=== PATIENT | female | born 1965 | race Caucasian/White ===

== ENCOUNTER → 2021-07-24 10:17 | Outpatient (BNVA) | payer SELFPAY | PROVIDERS: Family Provider Electrodiagnostic Medicine; PCP Electrodiagnostic Medicine; Visit Provider Nurse Practitioner Family | DX: Z20.828 Contact with and (suspected) exposure to other viral communicable diseases (principal) | CPT/HCPCS: 87635 ==

== ENCOUNTER 2021-08-18 08:29 | Outpatient (CLI) | payer OTHER, SELFPAY ==
--- NOTE | 2021-08-18 08:45 | XR_ITS ---
WS: [id number] Exam: XR cervical spine fl/ex [id number] Date/Time of Exam: 08/18/2021 8:52 AM Reason For Exam: M06.9 - Rheumatoid arthritis, unspecified No fracture or dislocation. No flexion or extension instability. Normal paraspinal soft tissues. XR/XR cervical spine fl/ex [id number] IMPRESSION: 1. No fracture or instability identified. Negative.
--- NOTE | 2021-08-18 08:45 | XR_ITS ---
WS: [id number] Exam: XR hand RT 2V [id number] Date/Time of Exam: 08/18/2021 8:52 AM Reason For Exam: M06.9 - Rheumatoid arthritis, unspecified Comparison 05/26/2018. No acute fracture or dislocation. Minimal degenerative changes in the IP joints. No sign of periartic ular demineralization or cortical erosion. Unremarkable soft tissues. XR/XR hand RT 2V [id number] IMPRESSION: 1. Minimal DJD of the IP joints. 2. No fracture. 3. No sign of periarticular demineralization or cortical erosion.
--- NOTE | 2021-08-18 08:45 | XR_ITS ---
WS: [id number] LEFT HAND: 2 VIEW(S) TECHNIQUE: PA and lateral. HISTORY: M06.9 - Rheumatoid arthritis, unspecified COMPARISON: 05/26/2018 No acute fracture or dislocation. Mild narrowing of the interphalangeal joints. Possible very minimal erosion involving the ulnar side of the third metacarpal head. No joint space narrowing. Mild joint space narrowing at the CMC joint. No erosion at the ulnar styloid. XR/XR hand LT 2V [id number] IMPRESSION: 1. Mild osteoarthritis. 2. Indeterminate but possible tiny erosion third metacarpal head.
[2021-08-18 09:35] LABS: Basophils % 0.5 %; Eosinophils # 0.1 10^3/uL (0.0-0.8); Hematocrit 37.4 % (37.0-47.0); Hemoglobin 12.2 g/dL (11.5-15.3); Lymphocytes % 31.2 %; Mean Corpuscular HGB Conc 32.6 g/dL (30.0-36.0); Mean Corpuscular Hemoglobin 29.5 pg (28.0-34.0); Mean Corpuscular Volume 90.3 fl (81-99); Monocytes # 0.5 10^3/uL (0.2-0.9); Monocytes % 7.6 %; Neutrophils # 3.74 10^3/uL (1.8-7.7); Neutrophils % 59.5 %; Nucleated Red Blood Cells % 0 %; Platelet Count 216 10^3/cmm (130-400); Red Blood Count 4.14 10^6/uL (4.1-5.3); Red Cell Distribution Width 12.7 % (12.1-15.1); White Blood Count 6.3 10^3/uL (4.0-10.0)
[2021-08-18 09:57] LABS: Erythrocyte Sedimentation Rate 11 mm/hr (0-15)
[2021-08-18 10:00] LABS: Alanine Aminotransferase 19 U/L (0-33); Albumin Level 4.6 g/dL (3.5-5.2); Alkaline Phosphatase 85 IU/L (35-105); Anion Gap 13.9 (5-19); Aspartate Amino Transferase 17 U/L (0-32); Blood Urea Nitrogen 13 mg/dL (6-20); Calcium 9.4 mg/dL (8.5-10.5); Carbon Dioxide 24 mmol/L (22-29); Chloride 103 mmol/L (98-107); Globulin 2.8 g/dL (1.3-4.6); Glomerular Filtration Rate 229.3 mL/min (90-130); Glucose 104 mg/dL (65-115); Osmolality Calculated 284 mOsm/kg (285-295); Potassium 3.9 mmol/L (3.5-5.1); Sodium 137 mmol/L (136-145); Total Bilirubin 0.4 mg/dL (0.15-1.2); Total Protein 7.4 g/dL (6.6-8.7)
[2021-08-18 10:16] LABS: Hepatitis C Virus Antibody Non-Reactive (Nonreactive)
== END 2021-08-18 08:30 | disposition home or self-care (01) ==
PROVIDERS: PCP Electrodiagnostic Medicine; Visit Provider Internal Medicine
DX: M06.9 Rheumatoid arthritis, unspecified (principal); Z11.59 Encounter for screening for other viral diseases
CPT/HCPCS: 72040; 73120; 80053; 85025; 85651; 86140; 86803

== ENCOUNTER 2023-12-06 10:07 | Outpatient (CLI) | payer OTHER, SELFPAY ==
[2023-12-06 10:57] LABS: Anion Gap 15.2 (5-19); Blood Urea Nitrogen 14 mg/dL (6-20); Carbon Dioxide 26 mmol/L (22-29); Chloride 102 mmol/L (98-107); Glomerular Filtration Rate 163.4 mL/min (90-130); Glucose 124 mg/dL (65-115); Osmolality Calculated 290 mOsm/kg (285-295); Potassium 4.2 mmol/L (3.5-5.1); Sodium 139 mmol/L (136-145)
== END 2023-12-06 10:08 | disposition home or self-care (01) ==
PROVIDERS: Visit Provider Urology
DX: Z01.818 Encounter for other preprocedural examination (principal); I10 Essential (primary) hypertension
CPT/HCPCS: 36415; 80048